=== PATIENT | male | born 1970 | race African-American/Black ===

== ENCOUNTER 2017-10-28 14:59 | Emergency (ER) | payer MEDICAID ==
[~2017-10-28] VITALS: Ht 175.3 cm; Wt 77.0 kg
[~2017-10-28 14:59] MED LIST: AMLO10TA4 PO; ASPI81TA50 PO; CARV-39 PO; CARV25TA12 PO; CLON0.2T PO; DOXA4TAB3 PO; HYDR-3342 PO; LISI-170 PO; LISI-467 PO; LISI2.5T PO
[2017-10-28 16:24] LABS: BASOPHILS # (AUTO) 0.02 x10^3/uL (0-0.1); BASOPHILS % (AUTO) 0 % (0-1); EOSINOPHILS # (AUTO) 0.18 x10^3/uL (0-0.4); EOSINOPHILS % (AUTO) 3 % (1-7); LYMPHOCYTES # (AUTO) 1.31 x10^3/uL (1-3.4); LYMPHOCYTES % (AUTO) 22 % (22-44); MD NO; MEAN CORPUSCULAR HEMOGLOBIN 30.6 pg (27.5-34.5); MEAN CORPUSCULAR HGB CONC 33.7 g/dL (33.2-36.2); MEAN CORPUSCULAR VOLUME 90.8 fL (81-97); MEAN PLATELET VOLUME 7.8 fL (7.4-10.4); MONOCYTES # (AUTO) 0.44 x10^3/uL (0.2-0.8); MONOCYTES % (AUTO) 7 % (2-9); NEUTROPHILS # (AUTO) 4.16 x10^3/uL (1.8-6.8); NEUTROPHILS % (AUTO) 68 % (42-75); PLATELET COUNT 169 x10^3/uL (130-400); RED BLOOD COUNT 4.43 x10^6/uL (4.38-5.82); RED CELL DISTRIBUTION WIDTH 15.3 % (9.4-14.8)
[2017-10-28 16:33] LABS: ALANINE AMINOTRANSFERASE 17 U/L (12-78); ALBUMIN 3.9 g/dL (3.4-5.0); ANION GAP 6 mmol/L (5-15); CALCIUM 8.4 mg/dL (8.5-10.1); CHLORIDE 110 mmol/L (98-107)
[2017-10-28 16:35] LABS: ALKALINE PHOSPHATASE 68 U/L (45-117); BILIRUBIN,TOTAL 0.7 mg/dL (0.2-1.0); TOTAL PROTEIN 7.4 g/dL (6.4-8.2)
[2017-10-28 17:00] LABS: MICROSCOPIC AUTO
[2017-10-28] MEDS ORDERED: ENALAPRILAT 1.25 MG/ML, 2ML IV ONE (17:00)
[2017-10-28 17:01] LABS: CULTURE INDICATED? NO
[2017-10-28] MEDS ORDERED: ENALAPRILAT 1.25 MG/ML, 2ML ONE (17:06)
[2017-10-28 17:09] LABS: TROPONIN I < 0.015 ng/mL (0.000-0.045)
[2017-10-28 17:24] VITALS: BP 175/124
== END 2017-10-28 19:41 | disposition home or self-care (01) ==
LOC: ED 18:24
DX: G44.89 Other headache syndrome (principal); I12.0 Hypertensive chronic kidney disease with stage 5 chronic kidney disease or end stage renal disease; N18.6 End stage renal disease; Z99.2 Dependence on renal dialysis; Z76.0 Encounter for issue of repeat prescription
CPT/HCPCS: 36415; 71010; 80053; 81001; 84484; 85025; 93005; 96374

== ENCOUNTER 2017-11-06 10:21 | Inpatient (IN) | payer MEDICAID ==
[~2017-11-06] VITALS: Ht 175.3 cm; Wt 73.0 kg
[2017-11-06] MEDS ORDERED: hydrALAzine 20 MG/ML, 1ML ONE ×2 (10:56→11:02)
[2017-11-06] MEDS ORDERED: SODIUM CHLORIDE FLUSH 10ML SYR IVF ONE (11:00)
[2017-11-06] MEDS ORDERED: FUROSEMIDE 40 MG/4 ML IVPush ONE (11:00)
[2017-11-06] MEDS ORDERED: SODIUM POLY SULFONATE UDC 15 GM/60 ML PO ONE (11:00)
[2017-11-06] MEDS ORDERED: DEXTROSE 50%, 50ML SYRINGE IVPush ONE (11:00)
[2017-11-06] MEDS ORDERED: CALCIUM CHLORIDE 10%, 10ML SYR IVPush ONE (11:00)
[2017-11-06] MEDS ORDERED: ALBUTEROL 0.5%, 20ML NPPB ONE (11:00)
[2017-11-06] MEDS ORDERED: hydrALAzine 20 MG/ML, 1ML IV ONE (11:00)
[2017-11-06] MEDS ORDERED: SODIUM BICARB 8.4%, 50ML SYRINGE IVPush ONE (11:00)
[2017-11-06] MEDS ORDERED: INSULIN REGULAR 100 UNITS/ML, 3ML VIAL IVPush ONE (11:00)
[2017-11-06] MEDS ORDERED: FUROSEMIDE 40 MG/4 ML ONE (11:02)
[2017-11-06] MEDS ORDERED: SODIUM POLYSTYRENE SULFONATE ORAL SUSP ONE (11:02)
[2017-11-06] MEDS ORDERED: SODIUM BICARB 8.4%, 50ML SYRINGE ONE (11:02)
[2017-11-06] MEDS ORDERED: CALCIUM CHLORIDE 10%, 10ML SYR ONE (11:02)
[2017-11-06] MEDS ORDERED: DEXTROSE 50%, 50ML SYRINGE ONE (11:02)
[2017-11-06] MEDS ORDERED: INSULIN REGULAR 100 UNITS/ML, 3ML VIAL ONE (11:03)
[2017-11-06 11:04] LABS: BASOPHILS # (AUTO) 0.02 x10^3/uL (0-0.1); BASOPHILS % (AUTO) 0 % (0-1); EOSINOPHILS # (AUTO) 0.27 x10^3/uL (0-0.4); EOSINOPHILS % (AUTO) 4 % (1-7); LYMPHOCYTES % (AUTO) 18 % (22-44); MD NO; MEAN CORPUSCULAR HGB CONC 33.9 g/dL (33.2-36.2); MEAN CORPUSCULAR VOLUME 91.7 fL (81-97); MEAN PLATELET VOLUME 7.9 fL (7.4-10.4); MONOCYTES # (AUTO) 0.25 x10^3/uL (0.2-0.8); MONOCYTES % (AUTO) 4 % (2-9); NEUTROPHILS # (AUTO) 4.38 x10^3/uL (1.8-6.8); NEUTROPHILS % (AUTO) 73 % (42-75); PLATELET COUNT 208 x10^3/uL (130-400); RED BLOOD COUNT 4.96 x10^6/uL (4.38-5.82); RED CELL DISTRIBUTION WIDTH 15.4 % (9.4-14.8)
[2017-11-06 11:17] LABS: ANION GAP 8 mmol/L (5-15); CALCIUM 8.7 mg/dL (8.5-10.1); CHLORIDE 113 mmol/L (98-107)
[2017-11-06 11:22] LABS: TROPONIN I < 0.015 ng/mL (0.000-0.045)
[2017-11-06] MEDS ORDERED: ONDANSETRON 2MG/ML, 2ML ONE (11:25)
[2017-11-06] MEDS ORDERED: POLYETHYLENE GLYCOL 17 GM PACKET PO PRN (13:00)
[2017-11-06] MEDS ORDERED: BISACODYL 10 MG SUPP PR PRN (13:00)
[2017-11-06] MEDS ORDERED: ACETAMINOPHEN 325 MG TABLET PO PRN (13:00)
[2017-11-06] MEDS ORDERED: DOCUSATE 100 MG CAPSULE PO PRN (13:00)
[2017-11-06] MEDS: HEPARIN 5,000 UNITS/ML, 1ML SQ SCH ×2 (13:00→20:03)
[2017-11-06] MEDS ORDERED: hydrALAzine 20 MG/ML, 1ML IVPush PRN (13:00)
[2017-11-06] MEDS ORDERED: ONDANSETRON 2MG/ML, 2ML IVPush PRN (13:00)
[2017-11-06 17:11] VITALS: BP 172/111
[2017-11-06] MEDS: FUROSEMIDE 20 MG TABLET PO SCH (18:00)
[2017-11-06 19:22] VITALS: BP 170/105
[2017-11-06] MEDS: SODIUM CHLORIDE FLUSH 10ML SYR IVF SCH (20:10)
[2017-11-06] MEDS: CARVEDILOL 25 MG TABLET PO SCH (20:10)
[2017-11-06] MEDS ORDERED: LISINOPRIL 20 MG TABLET PO SCH (21:00)
[2017-11-06 23:19] VITALS: BP 139/95
[2017-11-07 01:39] VITALS: BP 149/67
[2017-11-07 04:59] LABS: BASOPHILS # (AUTO) 0.03 x10^3/uL (0-0.1); BASOPHILS % (AUTO) 1 % (0-1); EOSINOPHILS # (AUTO) 0.25 x10^3/uL (0-0.4); EOSINOPHILS % (AUTO) 4 % (1-7); LYMPHOCYTES # (AUTO) 1.43 x10^3/uL (1-3.4); LYMPHOCYTES % (AUTO) 22 % (22-44); MD NO; MEAN CORPUSCULAR HEMOGLOBIN 30.9 pg (27.5-34.5); MEAN CORPUSCULAR HGB CONC 33.7 g/dL (33.2-36.2); MEAN CORPUSCULAR VOLUME 91.7 fL (81-97); MONOCYTES # (AUTO) 0.46 x10^3/uL (0.2-0.8); MONOCYTES % (AUTO) 7 % (2-9); NEUTROPHILS # (AUTO) 4.47 x10^3/uL (1.8-6.8); NEUTROPHILS % (AUTO) 67 % (42-75); PLATELET COUNT 182 x10^3/uL (130-400); RED BLOOD COUNT 4.88 x10^6/uL (4.38-5.82); RED CELL DISTRIBUTION WIDTH 15.5 % (9.4-14.8)
[2017-11-07] MEDS: HEPARIN 5,000 UNITS/ML, 1ML SQ SCH ×2 (05:00→13:00)
[2017-11-07 05:09] LABS: ALBUMIN 3.6 g/dL (3.4-5.0); CALCIUM 8.1 mg/dL (8.5-10.1); CHLORIDE 102 mmol/L (98-107)
[2017-11-07 05:13] LABS: ALANINE AMINOTRANSFERASE 26 U/L (12-78); ALKALINE PHOSPHATASE 74 U/L (45-117); ANION GAP 8 mmol/L (5-15); BILIRUBIN,TOTAL 0.5 mg/dL (0.2-1.0); CREATININE 5.36 mg/dL (0.7-1.3); TOTAL PROTEIN 6.9 g/dL (6.4-8.2)
[2017-11-07 07:26] VITALS: BP 159/113
[2017-11-07] MEDS: CARVEDILOL 25 MG TABLET PO SCH (08:10)
[2017-11-07] MEDS: FUROSEMIDE 20 MG TABLET PO SCH (08:10)
[2017-11-07] MEDS: SODIUM CHLORIDE FLUSH 10ML SYR IVF SCH (08:11)
[2017-11-07] MEDS ORDERED: AMLODIPINE 5 MG TABLET PO SCH ×2 (09:00→21:00)
[2017-11-07] MEDS ORDERED: LOSARTAN 50MG TABLET PO SCH (09:00)
[2017-11-07 10:06] VITALS: BP 143/94
[2017-11-07] MEDS ORDERED: LOSA50TA2 PO (10:39)
[2017-11-07] MEDS ORDERED: CARV25TA12 PO (10:43)
[2017-11-07 14:00] VITALS: BP 146/84
== END 2017-11-07 15:40 | disposition home or self-care (01) | DRG 291 ==
LOC: ED 11:27 → EDIP 12:04 → 4WST 14:05
PROVIDERS: ADMIT Internal Medicine; ATTEND Internal Medicine
PROC: 5A1D70Z Performance of Urinary Filtration, Intermittent, Less than 6 Hours Per Day (ICD-10-PCS; principal; 2017-11-06)
PROC: 5A1D70Z Performance of Urinary Filtration, Intermittent, Less than 6 Hours Per Day (ICD-10-PCS; 2017-11-07)
DX: I13.2 Hypertensive heart and chronic kidney disease with heart failure and with stage 5 chronic kidney disease, or end stage renal disease (principal); N18.6 End stage renal disease; E87.5 Hyperkalemia; I50.42 Chronic combined systolic (congestive) and diastolic (congestive) heart failure; I16.0 Hypertensive urgency; E78.5 Hyperlipidemia, unspecified; F17.210 Nicotine dependence, cigarettes, uncomplicated; F12.90 Cannabis use, unspecified, uncomplicated; Z79.899 Other long term (current) drug therapy; Z91.19 Patient's noncompliance with other medical treatment and regimen; Z99.2 Dependence on renal dialysis; Z91.14 Patient's other noncompliance with medication regimen
CPT/HCPCS: 36415; 71045; 80048; 80053; 80074; 82040; 83735; 83880; 84100; 84484; 84550; 85025; 93005; 96374; 96375; J1940; J0360

== ENCOUNTER 2018-08-06 20:48 | Inpatient (IN) | payer MEDICAID ==
[~2018-08-06] VITALS: Ht 172.7 cm; Wt 73.8 kg
[~2018-08-06 20:48] MED LIST changes: +LOSA50TA2 PO
[2018-08-06 21:19] LABS: BASOPHILS # (AUTO) 0.06 x10^3/uL (0-0.1); BASOPHILS % (AUTO) 1 % (0-1); EOSINOPHILS # (AUTO) 0.25 x10^3/uL (0-0.4); EOSINOPHILS % (AUTO) 3 % (1-7); LYMPHOCYTES # (AUTO) 1.28 x10^3/uL (1-3.4); LYMPHOCYTES % (AUTO) 17 % (22-44); MD NO; MEAN CORPUSCULAR HEMOGLOBIN 30.8 pg (27.5-34.5); MEAN CORPUSCULAR HGB CONC 33.6 g/dL (33.2-36.2); MEAN CORPUSCULAR VOLUME 91.6 fL (81-97); MEAN PLATELET VOLUME 7.6 fL (7.4-10.4); MONOCYTES # (AUTO) 0.33 x10^3/uL (0.2-0.8); MONOCYTES % (AUTO) 5 % (2-9); NEUTROPHILS # (AUTO) 5.47 x10^3/uL (1.8-6.8); NEUTROPHILS % (AUTO) 74 % (42-75); PLATELET COUNT 229 x10^3/uL (130-400); RED BLOOD COUNT 4.38 x10^6/uL (4.38-5.82); RED CELL DISTRIBUTION WIDTH 15.6 % (9.4-14.8)
[2018-08-06 21:31] LABS: ALBUMIN 4.1 g/dL (3.4-5.0); ANION GAP 6 mmol/L (5-15); CALCIUM 8.1 mg/dL (8.5-10.1); CHLORIDE 113 mmol/L (98-107); CREATININE 7.38 mg/dL (0.7-1.3)
[2018-08-06 21:35] LABS: TROPONIN I < 0.015 ng/mL (0.000-0.045)
[2018-08-06] MEDS ORDERED: INSULIN REGULAR 100 UNITS/ML, 3ML VIAL SQ-INSULIN SCH (22:00)
[2018-08-06] MEDS ORDERED: SODIUM POLYSTYRENE SULFONATE ORAL SUSP PO ONE (22:00)
[2018-08-06] MEDS ORDERED: DEXTROSE 50%, 50ML VIAL IVPush ONE (22:00)
[2018-08-06] MEDS ORDERED: CALCIUM GLUCONATE 9.2 MEQ in SODIUM CHLORIDE 0.9% 100 ML IV ONE (22:00)
[2018-08-06] MEDS ORDERED: LISI40TA PO (22:02)
[2018-08-06] MEDS ORDERED: DEXTROSE 50%, 50ML SYRINGE ONE (22:26)
[2018-08-06] MEDS ORDERED: SODIUM POLY SULFONATE UDC 15 GM/60 ML ONE (22:26)
[2018-08-06] MEDS ORDERED: INSULIN REGULAR 100 UNITS/ML, 3ML VIAL ONE (22:26)
[2018-08-06] MEDS ORDERED: DEXTROSE 50%, 50ML SYRINGE IVPush ONE (22:30)
[2018-08-06] MEDS ORDERED: POLYETHYLENE GLYCOL 17 GM PACKET PO PRN (23:00)
[2018-08-06] MEDS: CARVEDILOL 25 MG TABLET PO SCH (23:00)
[2018-08-06] MEDS: HEPARIN 5,000 UNITS/ML, 1ML SQ SCH (23:00)
[2018-08-06] MEDS ORDERED: ONDANSETRON ODT 4 MG PO PRN (23:00)
[2018-08-06] MEDS: NICOTINE 14MG/24 HR PATCH.TD24 TD SCH (23:00)
[2018-08-06] MEDS ORDERED: ACETAMINOPHEN 325 MG TABLET PO PRN (23:00)
[2018-08-06] MEDS ORDERED: BISACODYL 10 MG SUPP PR PRN (23:00)
[2018-08-06 23:12] VITALS: BP 144/94
[2018-08-06 23:36] LABS: BILIRUBIN, DIRECT 0.2 mg/dL (0.1-0.2)
[2018-08-06 23:38] LABS: BILIRUBIN,INDIRECT 0.4 mg/dL (0.0-2.0); BILIRUBIN,TOTAL 0.6 mg/dL (0.2-1.0); TOTAL PROTEIN 8.1 g/dL (6.4-8.2)
[2018-08-07 02:00] LABS: BASOPHILS # (AUTO) 0.04 x10^3/uL (0-0.1); BASOPHILS % (AUTO) 1 % (0-1); EOSINOPHILS # (AUTO) 0.19 x10^3/uL (0-0.4); EOSINOPHILS % (AUTO) 3 % (1-7); LYMPHOCYTES # (AUTO) 1.03 x10^3/uL (1-3.4); LYMPHOCYTES % (AUTO) 16 % (22-44); MD NO; MEAN CORPUSCULAR HEMOGLOBIN 30.5 pg (27.5-34.5); MEAN CORPUSCULAR HGB CONC 33.2 g/dL (33.2-36.2); MEAN CORPUSCULAR VOLUME 91.8 fL (81-97); MEAN PLATELET VOLUME 7.8 fL (7.4-10.4); MONOCYTES # (AUTO) 0.35 x10^3/uL (0.2-0.8); MONOCYTES % (AUTO) 6 % (2-9); NEUTROPHILS # (AUTO) 4.82 x10^3/uL (1.8-6.8); NEUTROPHILS % (AUTO) 75 % (42-75); PLATELET COUNT 163 x10^3/uL (130-400); RED BLOOD COUNT 4.04 x10^6/uL (4.38-5.82); RED CELL DISTRIBUTION WIDTH 15.2 % (9.4-14.8)
[2018-08-07 02:08] LABS: ALANINE AMINOTRANSFERASE 31 U/L (12-78); ALBUMIN 3.4 g/dL (3.4-5.0); ANION GAP 10 mmol/L (5-15); CALCIUM 7.9 mg/dL (8.5-10.1); CHLORIDE 106 mmol/L (98-107); CREATININE 4.04 mg/dL (0.7-1.3)
[2018-08-07 02:10] LABS: ALKALINE PHOSPHATASE 57 U/L (45-117); BILIRUBIN,TOTAL 0.6 mg/dL (0.2-1.0); TOTAL PROTEIN 6.8 g/dL (6.4-8.2)
[2018-08-07] MEDS: SODIUM CHLORIDE FLUSH 10ML SYR IVF SCH ×3 (03:10→20:47)
[2018-08-07 03:58] VITALS: BP 167/93
[2018-08-07 06:46] VITALS: BP 150/95
[2018-08-07] MEDS: NICOTINE 14MG/24 HR PATCH.TD24 TD SCH (08:00)
[2018-08-07] MEDS: HEPARIN 5,000 UNITS/ML, 1ML SQ SCH ×3 (08:00→23:21)
[2018-08-07] MEDS: SENNA/DOCUSATE TABLET PO SCH (09:00)
[2018-08-07] MEDS: AMLODIPINE 10 MG TAB PO SCH (10:35)
[2018-08-07] MEDS: CARVEDILOL 25 MG TABLET PO SCH ×2 (10:35→20:47)
[2018-08-07 12:04] VITALS: BP 136/91
[2018-08-07 19:22] VITALS: BP 159/76
[2018-08-08 02:00] VITALS: BP 152/89
[2018-08-08] MEDS: HEPARIN 5,000 UNITS/ML, 1ML SQ SCH ×2 (07:28→16:00)
[2018-08-08] MEDS: NICOTINE 14MG/24 HR PATCH.TD24 TD SCH (07:28)
[2018-08-08 07:29] VITALS: BP 151/90
[2018-08-08] MEDS: SENNA/DOCUSATE TABLET PO SCH (07:29)
[2018-08-08] MEDS: SODIUM CHLORIDE FLUSH 10ML SYR IVF SCH (09:00)
[2018-08-08 12:25] VITALS: BP 149/102
[2018-08-08] MEDS: CARVEDILOL 25 MG TABLET PO SCH (14:34)
[2018-08-08] MEDS: AMLODIPINE 10 MG TAB PO SCH (14:34)
== END 2018-08-08 17:10 | disposition home or self-care (01) | DRG 640 ==
LOC: ED 22:27 → EDIP 22:30 → 4WST 23:05
PROVIDERS: ADMIT Internal Medicine; ATTEND Internal Medicine
PROC: 5A1D70Z Performance of Urinary Filtration, Intermittent, Less than 6 Hours Per Day (ICD-10-PCS; 2018-08-06)
PROC: 5A1D70Z Performance of Urinary Filtration, Intermittent, Less than 6 Hours Per Day (ICD-10-PCS; principal; 2018-08-08)
DX: E87.5 Hyperkalemia (principal); N18.6 End stage renal disease; I50.32 Chronic diastolic (congestive) heart failure; I13.2 Hypertensive heart and chronic kidney disease with heart failure and with stage 5 chronic kidney disease, or end stage renal disease; Z99.2 Dependence on renal dialysis; D63.1 Anemia in chronic kidney disease; E78.5 Hyperlipidemia, unspecified; F12.90 Cannabis use, unspecified, uncomplicated; F17.210 Nicotine dependence, cigarettes, uncomplicated; N25.0 Renal osteodystrophy; Z79.4 Long term (current) use of insulin; Z91.15 Patient's noncompliance with renal dialysis; Z72.89 Other problems related to lifestyle; Z80.9 Family history of malignant neoplasm, unspecified
CPT/HCPCS: 36415; 71045; 80048; 80053; 80076; 82040; 83735; 83880; 84484; 85025; 93005; 96372; 96374; 96375; 99285; G0378; J0610

== ENCOUNTER 2018-10-29 18:32 | Inpatient (IN) | payer MEDICAID ==
[~2018-10-29] VITALS: Ht 175.3 cm; Wt 76.4 kg
[~2018-10-29 18:32] MED LIST changes: +LISI40TA PO
--- NOTE | 2018-10-29 19:02 | NUR ---
PT HERE BECAUSE HE HASNT HAD DIALYSIS FOR APPROX 1 WEEK. PT SAYS HE JUST DOESNT FEEL GOOD. VSS. PT APPEARS IN NAD AND DENIES PAIN OR N/V. PT TO BE EVALUATED BY ERP. CALL LIGHT IN REACH
[2018-10-29 19:49] LABS: BASOPHILS # (AUTO) 0.04 x10^3/uL (0-0.1); BASOPHILS % (AUTO) 1 % (0-1); EOSINOPHILS # (AUTO) 0.24 x10^3/uL (0-0.4); EOSINOPHILS % (AUTO) 4 % (1-7); LYMPHOCYTES # (AUTO) 1.29 x10^3/uL (1-3.4); LYMPHOCYTES % (AUTO) 22 % (22-44); MD NO; MEAN CORPUSCULAR HEMOGLOBIN 31.6 pg (27.5-34.5); MEAN CORPUSCULAR HGB CONC 33.7 g/dL (33.2-36.2); MEAN CORPUSCULAR VOLUME 93.9 fL (81-97); MEAN PLATELET VOLUME 8.1 fL (7.4-10.4); MONOCYTES # (AUTO) 0.45 x10^3/uL (0.2-0.8); MONOCYTES % (AUTO) 8 % (2-9); NEUTROPHILS # (AUTO) 3.91 x10^3/uL (1.8-6.8); NEUTROPHILS % (AUTO) 66 % (42-75); PLATELET COUNT 197 x10^3/uL (130-400)
[2018-10-29 20:01] LABS: ANION GAP 7 mmol/L (5-15); CALCIUM 8.5 mg/dL (8.5-10.1); CHLORIDE 113 mmol/L (98-107); CREATININE 9.77 mg/dL (0.7-1.3)
[2018-10-29] MEDS ORDERED: DEXTROSE 50%, 50ML SYRINGE ONE (20:21)
[2018-10-29] MEDS ORDERED: SODIUM BICARB 8.4%, 50ML SYRINGE ONE (20:21)
[2018-10-29] MEDS ORDERED: INSULIN REGULAR 100 UNITS/ML, 3ML VIAL IVPush ONE (20:30)
[2018-10-29] MEDS ORDERED: DEXTROSE 50%, 50ML SYRINGE IVPush ONE (20:30)
[2018-10-29] MEDS ORDERED: SODIUM BICARB 8.4%, 50ML SYRINGE IVPush ONE (20:30)
--- NOTE | 2018-10-29 20:33 | NUR ---
PT HAS K+ 6.7. PIV STARTED. PT MEDICATED WITH BICARB AND DEXTROSE. INSULIN HELD PER MD ORDER UNTIL GLUCOSE CAN BE RECHECKED. VSS. CALL LIGHT IN REACH.
--- NOTE | 2018-10-29 20:42 | NUR ---
FSBG 169. AWARE.
--- NOTE | 2018-10-29 20:54 | NUR ---
PT TO GO FOR STAT DIALYSIS. WAITING FOR BED ASSIGNMENT TO GIVE REPORT
[2018-10-29] MEDS ORDERED: SODIUM CHLORIDE FLUSH 10ML SYR IVF PRN (21:00)
[2018-10-29] MEDS ORDERED: ONDANSETRON ODT 4 MG PO PRN (21:30)
[2018-10-29] MEDS ORDERED: NICOTINE 14MG/24 HR PATCH.TD24 TD SCH (21:30)
[2018-10-29] MEDS: SODIUM CHLORIDE FLUSH 10ML SYR IVF SCH (21:30)
[2018-10-29] MEDS ORDERED: POLYETHYLENE GLYCOL 17 GM PACKET PO PRN (21:30)
[2018-10-29] MEDS: HEPARIN 5,000 UNITS/ML, 1ML SQ SCH (21:30)
[2018-10-29] MEDS ORDERED: BISACODYL 10 MG SUPP PR PRN (21:30)
[2018-10-29] MEDS ORDERED: ACETAMINOPHEN 325 MG TABLET PO PRN (21:30)
[2018-10-29 21:35] VITALS: BP 142/88
[2018-10-29] MEDS: CARVEDILOL 25 MG TABLET PO SCH (21:59)
[2018-10-30 01:59] VITALS: BP 134/86
[2018-10-30] MEDS: HEPARIN 5,000 UNITS/ML, 1ML SQ SCH ×2 (04:25→13:30)
[2018-10-30 06:16] LABS: BASOPHILS # (AUTO) 0.04 x10^3/uL (0-0.1); BASOPHILS % (AUTO) 1 % (0-1); EOSINOPHILS # (AUTO) 0.25 x10^3/uL (0-0.4); EOSINOPHILS % (AUTO) 5 % (1-7); LYMPHOCYTES # (AUTO) 1.47 x10^3/uL (1-3.4); LYMPHOCYTES % (AUTO) 29 % (22-44); MD NO; MEAN CORPUSCULAR HEMOGLOBIN 31.6 pg (27.5-34.5); MEAN CORPUSCULAR HGB CONC 34.4 g/dL (33.2-36.2); MEAN CORPUSCULAR VOLUME 91.8 fL (81-97); MONOCYTES # (AUTO) 0.48 x10^3/uL (0.2-0.8); MONOCYTES % (AUTO) 9 % (2-9); NEUTROPHILS # (AUTO) 2.92 x10^3/uL (1.8-6.8); NEUTROPHILS % (AUTO) 57 % (42-75); PLATELET COUNT 170 x10^3/uL (130-400); RED BLOOD COUNT 4.36 x10^6/uL (4.38-5.82); RED CELL DISTRIBUTION WIDTH 15.9 % (9.4-14.8)
[2018-10-30 06:22] LABS: ALBUMIN 3.8 g/dL (3.4-5.0); ANION GAP 8 mmol/L (5-15); CALCIUM 8.1 mg/dL (8.5-10.1); CHLORIDE 106 mmol/L (98-107)
[2018-10-30 06:26] LABS: ALANINE AMINOTRANSFERASE 24 U/L (12-78); ALKALINE PHOSPHATASE 93 U/L (45-117); BILIRUBIN,TOTAL 0.4 mg/dL (0.2-1.0); CREATININE 6.11 mg/dL (0.7-1.3); TOTAL PROTEIN 7.5 g/dL (6.4-8.2)
[2018-10-30 06:40] VITALS: BP 146/84
[2018-10-30] MEDS: CARVEDILOL 25 MG TABLET PO SCH (08:28)
[2018-10-30] MEDS ORDERED: AMLODIPINE 10 MG TAB PO SCH (09:00)
[2018-10-30] MEDS: SODIUM CHLORIDE FLUSH 10ML SYR IVF SCH (09:00)
[2018-10-30] MEDS ORDERED: LISINOPRIL 20 MG TABLET PO SCH (09:00)
[2018-10-30] MEDS ORDERED: SENNA/DOCUSATE TABLET PO SCH (09:00)
[2018-10-30 14:00] VITALS: BP 128/72
== END 2018-10-30 23:04 | disposition home or self-care (01) | DRG 640 ==
LOC: ED 20:41 → EDIP 20:43 → 4EST 21:15
PROVIDERS: ADMIT Internal Medicine; ATTEND Internal Medicine
PROC: 5A1D70Z Performance of Urinary Filtration, Intermittent, Less than 6 Hours Per Day (ICD-10-PCS; principal; 2018-10-29)
PROC: 5A1D70Z Performance of Urinary Filtration, Intermittent, Less than 6 Hours Per Day (ICD-10-PCS; 2018-10-30)
DX: E87.5 Hyperkalemia (principal); N18.6 End stage renal disease; I13.2 Hypertensive heart and chronic kidney disease with heart failure and with stage 5 chronic kidney disease, or end stage renal disease; I50.32 Chronic diastolic (congestive) heart failure; E11.65 Type 2 diabetes mellitus with hyperglycemia; E11.22 Type 2 diabetes mellitus with diabetic chronic kidney disease; D63.1 Anemia in chronic kidney disease; F12.10 Cannabis abuse, uncomplicated; F17.210 Nicotine dependence, cigarettes, uncomplicated; N25.0 Renal osteodystrophy; Z91.15 Patient's noncompliance with renal dialysis; Z91.19 Patient's noncompliance with other medical treatment and regimen; Z99.2 Dependence on renal dialysis
CPT/HCPCS: 36415; 80048; 80053; 82040; 85025; 93005; 96374; 96375; 99291; G0378

== ENCOUNTER 2018-11-19 18:06 | Inpatient (IN) | payer MEDICAID ==
[~2018-11-19] VITALS: Ht 175.3 cm; Wt 75.9 kg
--- NOTE | 2018-11-19 18:56 | NUR ---
Pt presents for mild SOB and mild generalized weakness. Pt states he is a dialysis pt MF. Makes urine. Out in [place] visiting family and he dialysis he organized fell through. No dialysis in 1 week. Appears NAD. Peaked t waves on ECG.
[2018-11-19 18:58] LABS: BASOPHILS # (AUTO) 0.04 x10^3/uL (0-0.1); BASOPHILS % (AUTO) 1 % (0-1); EOSINOPHILS # (AUTO) 0.26 x10^3/uL (0-0.4); EOSINOPHILS % (AUTO) 5 % (1-7); LYMPHOCYTES # (AUTO) 1.24 x10^3/uL (1-3.4); LYMPHOCYTES % (AUTO) 25 % (22-44); MD NO; MEAN CORPUSCULAR HEMOGLOBIN 31.6 pg (27.5-34.5); MEAN CORPUSCULAR HGB CONC 33.9 g/dL (33.2-36.2); MEAN CORPUSCULAR VOLUME 93.1 fL (81-97); MONOCYTES # (AUTO) 0.36 x10^3/uL (0.2-0.8); MONOCYTES % (AUTO) 7 % (2-9); NEUTROPHILS # (AUTO) 3.15 x10^3/uL (1.8-6.8); NEUTROPHILS % (AUTO) 62 % (42-75); PLATELET COUNT 181 x10^3/uL (130-400); RED BLOOD COUNT 4.16 x10^6/uL (4.38-5.82); RED CELL DISTRIBUTION WIDTH 15.1 % (9.4-14.8)
[2018-11-19] MEDS ORDERED: SODIUM CHLORIDE FLUSH 10ML SYR IVF ONE (19:00)
[2018-11-19 19:07] LABS: ALBUMIN 3.9 g/dL (3.4-5.0); ANION GAP 6 mmol/L (5-15); CALCIUM 8.4 mg/dL (8.5-10.1); CHLORIDE 115 mmol/L (98-107); CREATININE 9.08 mg/dL (0.7-1.3)
[2018-11-19] MEDS ORDERED: SODIUM POLY SULFONATE UDC 15 GM/60 ML PO ONE (20:00)
[2018-11-19] MEDS ORDERED: CALCIUM CHLORIDE 10%, 10ML SYR IVPush ONE (20:00)
[2018-11-19] MEDS ORDERED: DEXTROSE 50%, 50ML SYRINGE IVPush ONE ×2 (20:00→21:30)
[2018-11-19] MEDS ORDERED: INSULIN REGULAR 100 UNITS/ML, 3ML VIAL IVPush ONE (20:00)
[2018-11-19] MEDS ORDERED: INSULIN REGULAR 100 UNITS/ML, 3ML VIAL ONE (20:15)
[2018-11-19] MEDS ORDERED: CALCIUM CHLORIDE 10%, 10ML SYR ONE (20:17)
[2018-11-19] MEDS ORDERED: DEXTROSE 50%, 50ML SYRINGE ONE ×2 (20:17→21:28)
--- NOTE | 2018-11-19 20:19 | NUR ---
IV insulin checked with Riana PIKE Addendum: 11/20/18 at 1918 by NGUYEN IV insulin checked with Yesica PIKE
--- NOTE | 2018-11-19 20:36 | NUR ---
Pt in bed, NAD at this time.
[2018-11-19] MEDS ORDERED: hydrALAzine 20 MG/ML, 1ML IVPush PRN (21:00)
[2018-11-19] MEDS ORDERED: NICOTINE 7 MG/24 HR PATCH.TD24 TD SCH (21:00)
[2018-11-19] MEDS ORDERED: DOCUSATE 100 MG CAPSULE PO PRN (21:00)
[2018-11-19] MEDS ORDERED: ONDANSETRON ODT 4 MG PO PRN (21:00)
[2018-11-19] MEDS: HEPARIN 5,000 UNITS/ML, 1ML SQ SCH (21:00)
[2018-11-19] MEDS ORDERED: ACETAMINOPHEN 325 MG TABLET PO PRN (21:00)
--- NOTE | 2018-11-19 21:32 | NUR ---
Pt found in room, diaphoretic. AAOx4. BG checked at 17. D50 50ml given. Two 8oz OJ given. Pt denies CP. VSS.
--- NOTE | 2018-11-19 21:54 | NUR ---
On recheck, BG 54. Pt NAD at this time. Pt given 8oz more OJ, cereal and milk.
--- NOTE | 2018-11-19 23:01 | NUR ---
BG 69 at this time. Pt NAD.
[2018-11-19 23:17] VITALS: BP 143/93
[2018-11-20] MEDS ORDERED: SODIUM POLYSTYRENE SULFONATE ORAL SUSP PO ONE
[2018-11-20] MEDS: DEXTROSE 5% 1,000 ML IV SCH ×2 (00:03→07:52)
[2018-11-20] MEDS: CARVEDILOL 25 MG TABLET PO SCH ×2 (00:04→07:49)
[2018-11-20 01:50] VITALS: BP 149/92
[2018-11-20] MEDS: HEPARIN 5,000 UNITS/ML, 1ML SQ SCH ×2 (05:00→12:06)
[2018-11-20 05:49] LABS: BASOPHILS # (AUTO) 0.04 x10^3/uL (0-0.1); BASOPHILS % (AUTO) 1 % (0-1); EOSINOPHILS # (AUTO) 0.18 x10^3/uL (0-0.4); EOSINOPHILS % (AUTO) 4 % (1-7); LYMPHOCYTES # (AUTO) 1.13 x10^3/uL (1-3.4); LYMPHOCYTES % (AUTO) 23 % (22-44); MD NO; MEAN CORPUSCULAR HEMOGLOBIN 31.7 pg (27.5-34.5); MEAN CORPUSCULAR HGB CONC 34.1 g/dL (33.2-36.2); MEAN CORPUSCULAR VOLUME 92.8 fL (81-97); MEAN PLATELET VOLUME 8.3 fL (7.4-10.4); MONOCYTES # (AUTO) 0.39 x10^3/uL (0.2-0.8); MONOCYTES % (AUTO) 8 % (2-9); NEUTROPHILS # (AUTO) 3.14 x10^3/uL (1.8-6.8); NEUTROPHILS % (AUTO) 64 % (42-75); PLATELET COUNT 174 x10^3/uL (130-400); RED BLOOD COUNT 4.01 x10^6/uL (4.38-5.82); RED CELL DISTRIBUTION WIDTH 14.6 % (9.4-14.8)
[2018-11-20 05:57] LABS: ANION GAP 8 mmol/L (5-15); CALCIUM 8.6 mg/dL (8.5-10.1); CHLORIDE 110 mmol/L (98-107); CREATININE 8.48 mg/dL (0.7-1.3)
[2018-11-20 07:02] VITALS: BP 138/86
[2018-11-20] MEDS ORDERED: AMLODIPINE 10 MG TAB PO SCH (09:00)
[2018-11-20] MEDS ORDERED: LISINOPRIL 20 MG TABLET PO SCH (09:00)
[2018-11-20 14:00] VITALS: BP 128/76
== END 2018-11-20 18:07 | disposition home or self-care (01) | DRG 640 ==
LOC: ED 18:32 → EDIP 20:27 → 4EST 23:07
PROVIDERS: ADMIT Internal Medicine; ATTEND Internal Medicine
PROC: 5A1D70Z Performance of Urinary Filtration, Intermittent, Less than 6 Hours Per Day (ICD-10-PCS; principal; 2018-11-20)
DX: E87.5 Hyperkalemia (principal); N18.6 End stage renal disease; I13.2 Hypertensive heart and chronic kidney disease with heart failure and with stage 5 chronic kidney disease, or end stage renal disease; I50.32 Chronic diastolic (congestive) heart failure; Z99.2 Dependence on renal dialysis; D63.8 Anemia in other chronic diseases classified elsewhere; E11.22 Type 2 diabetes mellitus with diabetic chronic kidney disease; E11.649 Type 2 diabetes mellitus with hypoglycemia without coma; F12.90 Cannabis use, unspecified, uncomplicated; Z72.0 Tobacco use; Z80.0 Family history of malignant neoplasm of digestive organs; Z91.19 Patient's noncompliance with other medical treatment and regimen; R06.89 Other abnormalities of breathing
CPT/HCPCS: 36415; 71045; 80048; 82040; 82962; 83735; 85025; 93005; 96374; 96375; G0378; J7070

== ENCOUNTER 2018-12-20 18:01 | Observation (INO) | payer MEDICAID ==
[~2018-12-20] VITALS: Ht 175.3 cm; Wt 83.5 kg
--- NOTE | 2018-12-20 18:52 | NUR ---
+SOB. DENIES CP/BLE EDEMA/PRODUCTIVE COUGH. SPO2 >90% ON RA; SPEAKING IN FULL SENTENCES WO DIFFICULTY VISITING JUAN RAMON FROM [place], NO DIALYSIS X ONE WEEK PER TRIAGE NOTE
--- NOTE | 2018-12-20 19:09 | NUR ---
SBAR HAND-OFF REPORT TO SHAHZAD DONOVAN.
[2018-12-20 19:21] LABS: BASOPHILS # (AUTO) 0.04 x10^3/uL (0-0.1); BASOPHILS % (AUTO) 1 % (0-1); EOSINOPHILS % (AUTO) 6 % (1-7); LYMPHOCYTES # (AUTO) 1.31 x10^3/uL (1-3.4); LYMPHOCYTES % (AUTO) 26 % (22-44); MD NO; MEAN CORPUSCULAR HEMOGLOBIN 31.6 pg (27.5-34.5); MEAN CORPUSCULAR VOLUME 93.1 fL (81-97); MEAN PLATELET VOLUME 7.7 fL (7.4-10.4); MONOCYTES # (AUTO) 0.36 x10^3/uL (0.2-0.8); MONOCYTES % (AUTO) 7 % (2-9); NEUTROPHILS # (AUTO) 3.11 x10^3/uL (1.8-6.8); NEUTROPHILS % (AUTO) 61 % (42-75); PLATELET COUNT 196 x10^3/uL (130-400); RED BLOOD COUNT 4.24 x10^6/uL (4.38-5.82); RED CELL DISTRIBUTION WIDTH 14.6 % (9.4-14.8)
[2018-12-20 19:25] LABS: ALANINE AMINOTRANSFERASE 26 U/L (12-78); ALBUMIN 3.9 g/dL (3.4-5.0); ANION GAP 4 mmol/L (5-15); CALCIUM 8.4 mg/dL (8.5-10.1); CHLORIDE 116 mmol/L (98-107); CREATININE 8.84 mg/dL (0.7-1.3)
[2018-12-20 19:27] LABS: ALKALINE PHOSPHATASE 82 U/L (45-117); BILIRUBIN,TOTAL 0.4 mg/dL (0.2-1.0); TOTAL PROTEIN 7.8 g/dL (6.4-8.2)
--- NOTE | 2018-12-20 19:53 | NUR ---
GIVEN URINE CUP FOR UA PT UPA MBULATED TO BATHROOM UA IN LAB
[2018-12-20] MEDS ORDERED: CALCIUM CHLORIDE 10%, 10ML SYR IVPush ONE (20:00)
[2018-12-20] MEDS ORDERED: DEXTROSE 50%, 50ML SYRINGE IVPush ONE (20:00)
[2018-12-20] MEDS ORDERED: INSULIN REGULAR 100 UNITS/ML, 3ML VIAL IVPush ONE (20:00)
[2018-12-20] MEDS ORDERED: CALCIUM CHLORIDE 10%, 10ML SYR ONE (20:03)
[2018-12-20] MEDS ORDERED: DEXTROSE 50%, 50ML SYRINGE ONE ×2 (20:03→21:14)
[2018-12-20] MEDS ORDERED: INSULIN REGULAR 100 UNITS/ML, 3ML VIAL ONE (20:04)
--- NOTE | 2018-12-20 20:09 | NUR ---
GIVEN MED ( CALCIUM ) DEXTROSE 50MLS AND R INSULIN 10 UNITS IV PUSH PT WORRIED ABOUT BLOOD SUGAR MIGHT DROP
[2018-12-20 20:23] LABS: MICROSCOPIC NOT IND
[2018-12-20] MEDS ORDERED: SODIUM POLYSTYRENE SULFONATE ORAL SUSP PO ONE (20:30)
[2018-12-20 20:35] LABS: CULTURE INDICATED? NO
--- NOTE | 2018-12-20 21:27 | NUR ---
PT'S FSBS WSAS 26 PT WAS SWEATING GIVEN D50 AMP AGAIN PT REFUSED TO TAKE KAYEXALATE AT THIS TIME WAS NOTIFIED
[2018-12-20] MEDS ORDERED: DEXTROSE 50%, 50ML VIAL IVPush ONE (21:30)
--- NOTE | 2018-12-20 21:36 | NUR ---
GIVEN REPORT TO BERTA Z[employer] TELE
--- NOTE | 2018-12-20 21:48 | NUR ---
RECHECKED FSBS 77 AGAIN BUT REPORT WAS GIVEN ALREADY TO BERTA PIKE MD WAS NOTIFIED WILL GIVE TURKEY SANDWICH RIGHT AWAY GIVEN SANDWICH BUT PT IS TRANSFERRING NOW NOTIFIED TO SHAHZAD HAMPTON BY THE PHONE REGARDIG CURRENT PT'S BLOOD SUGAR SITUATION SUP ERIC WAS NOTIFIED ERIC TEXTED TO MATTHIAS FOR FSBS ISSUES
[2018-12-20 21:56] VITALS: BP 145/92
[2018-12-20] MEDS ORDERED: AMLO10TA8 PO (22:01)
[2018-12-20] MEDS ORDERED: hydrALAzine 20 MG/ML, 1ML IVPush PRN (23:00)
[2018-12-20] MEDS ORDERED: BISACODYL 10 MG SUPP PR PRN (23:00)
[2018-12-20] MEDS ORDERED: LABETALOL 5MG/ML, 20ML IVPush PRN (23:00)
[2018-12-20] MEDS ORDERED: PROMETHAZINE 25 MG/ML, 1ML IM PRN (23:00)
[2018-12-20] MEDS ORDERED: DOCUSATE 100 MG CAPSULE PO PRN (23:00)
[2018-12-20] MEDS ORDERED: GABAPENTIN 300 MG CAPSULE PO PRN (23:00)
[2018-12-20] MEDS ORDERED: ONDANSETRON ODT 4 MG PO PRN (23:00)
[2018-12-20] MEDS ORDERED: NICOTINE 7 MG/24 HR PATCH.TD24 TD SCH (23:00)
[2018-12-20] MEDS ORDERED: POLYETHYLENE GLYCOL 17 GM PACKET PO PRN (23:00)
[2018-12-20] MEDS ORDERED: ACETAMINOPHEN 325 MG TABLET PO PRN (23:00)
[2018-12-20] MEDS ORDERED: ONDANSETRON 2MG/ML, 2ML IVPush PRN (23:00)
[2018-12-20] MEDS: HEPARIN 5,000 UNITS/ML, 1ML SQ SCH (23:00)
[2018-12-20 23:20] VITALS: BP 132/85
[2018-12-20] MEDS: CARVEDILOL 25 MG TABLET PO SCH (23:22)
[2018-12-20 23:24] LABS: FREE T4 (FREE THYROXINE) 0.9 ng/dL (0.76-1.46); THYROID STIMULATING HORMONE 0.389 mIU/L (0.358-3.740)
[2018-12-21 00:07] LABS: HEMOGLOBIN A1C 4.8 % (4.2-6.3)
[2018-12-21 00:23] VITALS: BP 136/91
[2018-12-21 05:58] LABS: BASOPHILS # (AUTO) 0.03 x10^3/uL (0-0.1); BASOPHILS % (AUTO) 1 % (0-1); EOSINOPHILS # (AUTO) 0.25 x10^3/uL (0-0.4); EOSINOPHILS % (AUTO) 6 % (1-7); LYMPHOCYTES # (AUTO) 1.04 x10^3/uL (1-3.4); LYMPHOCYTES % (AUTO) 24 % (22-44); MD NO; MEAN CORPUSCULAR HEMOGLOBIN 30.9 pg (27.5-34.5); MEAN CORPUSCULAR HGB CONC 33.4 g/dL (33.2-36.2); MEAN CORPUSCULAR VOLUME 92.5 fL (81-97); MEAN PLATELET VOLUME 7.9 fL (7.4-10.4); MONOCYTES % (AUTO) 7 % (2-9); NEUTROPHILS # (AUTO) 2.67 x10^3/uL (1.8-6.8); NEUTROPHILS % (AUTO) 62 % (42-75); PLATELET COUNT 190 x10^3/uL (130-400); RED CELL DISTRIBUTION WIDTH 14.5 % (9.4-14.8)
[2018-12-21 06:18] LABS: ALANINE AMINOTRANSFERASE 29 U/L (12-78); ANION GAP 3 mmol/L (5-15); CALCIUM 8.2 mg/dL (8.5-10.1); CHLORIDE 118 mmol/L (98-107)
[2018-12-21 06:50] LABS: ALBUMIN 3.7 g/dL (3.4-5.0); ALKALINE PHOSPHATASE 77 U/L (45-117); BILIRUBIN,TOTAL 0.4 mg/dL (0.2-1.0); CHOLESTEROL, TOTAL 145 mg/dL (140-239); HDL CHOL % 34 % (26-37); HDL CHOLESTEROL (DIRECT) 49 mg/dL (40-60); LDL CHOLESTEROL,CALCULATED 67 mg/dL (54-169); LDL/HDL RATIO 1.4 (0.5-3.0); TOTAL PROTEIN 7.2 g/dL (6.4-8.2); TRIGLYCERIDES 143 mg/dL (50-200); VLDL CHOLESTEROL 29 mg/dL (0-25)
[2018-12-21] MEDS ORDERED: CALCIUM GLUCONATE 4.6 MEQ in SODIUM CHLORIDE 0.9% 50 ML IV STA (07:22)
[2018-12-21 07:35] VITALS: BP 149/98
[2018-12-21] MEDS: HEPARIN 5,000 UNITS/ML, 1ML SQ SCH (08:00)
[2018-12-21] MEDS ORDERED: AMLODIPINE 10 MG TAB PO SCH (09:00)
[2018-12-21] MEDS ORDERED: LISINOPRIL 20 MG TABLET PO SCH (09:00)
[2018-12-21 14:02] VITALS: BP 164/101
[2018-12-21] MEDS: CARVEDILOL 25 MG TABLET PO SCH (15:16)
== END 2018-12-21 15:28 | disposition home or self-care (01) ==
LOC: ED 20:56 → EDIP 21:11 → INTOOBSV 21:11 → 4WST 21:46 → DCLOUNGE 12-21 15:20
PROVIDERS: ADMIT Internal Medicine; ATTEND Internal Medicine
DX: E87.5 Hyperkalemia (principal); I13.2 Hypertensive heart and chronic kidney disease with heart failure and with stage 5 chronic kidney disease, or end stage renal disease; N18.6 End stage renal disease; I50.40 Unspecified combined systolic (congestive) and diastolic (congestive) heart failure; E87.2 Acidosis; D63.1 Anemia in chronic kidney disease; E78.5 Hyperlipidemia, unspecified; E83.51 Hypocalcemia; F17.210 Nicotine dependence, cigarettes, uncomplicated; F12.90 Cannabis use, unspecified, uncomplicated; N25.0 Renal osteodystrophy; Z99.2 Dependence on renal dialysis; Z91.14 Patient's other noncompliance with medication regimen; Z91.15 Patient's noncompliance with renal dialysis; Z79.899 Other long term (current) drug therapy; Z71.89 Other specified counseling
CPT/HCPCS: 36415; 71045; 80053; 80061; 81003; 82962; 83036; 83735; 84132; 84439; 84443; 85025; 86705; 86706; 87340; 93005; 96365; 96375; 96376; 99285; G0378; J0610; 96374

== ENCOUNTER 2019-01-28 10:40 | Inpatient (IN) | payer MEDICAID ==
[~2019-01-28] VITALS: Ht 175.3 cm; Wt 73.2 kg
[~2019-01-28 10:40] MED LIST changes: +AMLO10TA8 PO
[2019-01-28 11:19] LABS: BASOPHILS # (AUTO) 0.03 x10^3/uL (0-0.1); BASOPHILS % (AUTO) 0 % (0-1); EOSINOPHILS # (AUTO) 0.15 x10^3/uL (0-0.4); EOSINOPHILS % (AUTO) 2 % (1-7); LYMPHOCYTES # (AUTO) 0.81 x10^3/uL (1-3.4); LYMPHOCYTES % (AUTO) 9 % (22-44); MD NO; MEAN CORPUSCULAR HEMOGLOBIN 30.9 pg (27.5-34.5); MEAN CORPUSCULAR HGB CONC 33.2 g/dL (33.2-36.2); MEAN CORPUSCULAR VOLUME 93.2 fL (81-97); MONOCYTES # (AUTO) 0.31 x10^3/uL (0.2-0.8); MONOCYTES % (AUTO) 3 % (2-9); NEUTROPHILS # (AUTO) 8.12 x10^3/uL (1.8-6.8); NEUTROPHILS % (AUTO) 86 % (42-75); PLATELET COUNT 212 x10^3/uL (130-400); RED BLOOD COUNT 4.84 x10^6/uL (4.38-5.82); RED CELL DISTRIBUTION WIDTH 15.4 % (9.4-14.8)
--- NOTE | 2019-01-28 11:20 | NUR ---
EXTRUDING MACHINE OPERATOR: PT TO ROOM FROM [facility]ANIEL[facility]
[2019-01-28 11:29] LABS: ALANINE AMINOTRANSFERASE 25 U/L (12-78); ALBUMIN 4.3 g/dL (3.4-5.0); ANION GAP 6 mmol/L (5-15); CALCIUM 8.4 mg/dL (8.5-10.1); CHLORIDE 116 mmol/L (98-107); CREATININE 9.45 mg/dL (0.7-1.3)
--- NOTE | 2019-01-28 11:30 | NUR ---
pt presented to ed with n/v and pt has not had dialysis x 2 weeks. pt a&ox4. pt placed in room and placed on bp, cardiac and cont. pulse oximeter. assessment completed. pt was seen in pit and orders received. urine sample given and sent to lab.
[2019-01-28 11:31] LABS: ALKALINE PHOSPHATASE 131 U/L (45-117); BILIRUBIN,TOTAL 0.3 mg/dL (0.2-1.0); TOTAL PROTEIN 8.2 g/dL (6.4-8.2)
[2019-01-28] MEDS ORDERED: DEXTROSE 50%, 50ML SYRINGE IVPush ONE (12:00)
[2019-01-28] MEDS ORDERED: CALCIUM CHLORIDE 10%, 10ML SYR IVPush ONE (12:00)
[2019-01-28] MEDS ORDERED: INSULIN REGULAR 100 UNITS/ML, 3ML VIAL IVPush ONE (12:00)
[2019-01-28] MEDS ORDERED: ALBUTEROL 0.5%, 20ML NPPB ONE (12:00)
--- NOTE | 2019-01-28 12:00 | NUR ---
report receieved from SHAHZAD Villafana at bedside. pt a&ox 4, resps even and unlabored. This RN clarified calcium order with MD La, to be switched to calcium gluconate.
[2019-01-28 12:01] LABS: CULTURE INDICATED? NO; MICROSCOPIC NOT IND
--- NOTE | 2019-01-28 12:03 | NUR ---
report given to familia sepulveda
[2019-01-28] MEDS ORDERED: DEXTROSE 50%, 50ML SYRINGE ONE (12:14)
[2019-01-28] MEDS ORDERED: CALCIUM CHLORIDE 10%, 10ML SYR ONE (12:14)
[2019-01-28] MEDS ORDERED: INSULIN LISPRO 100 UNITS/ML, PEN ONE (12:14)
[2019-01-28] MEDS ORDERED: CALCIUM GLUCONATE 4.6 MEQ/10 ML ONE (12:22)
[2019-01-28] MEDS ORDERED: CALCIUM GLUCONATE 0.46MEQ/1ML IVPush ONE (12:30)
[2019-01-28] MEDS ORDERED: CALCIUM GLUCONATE 4.6 MEQ in SODIUM CHLORIDE 0.9% 50 ML IV ONE (12:30)
--- NOTE | 2019-01-28 12:45 | NUR ---
pt medicated per emar, tolerated well. calcium gluconate infusion ordered and administered per pharmacy, infusing at prescribed drip rate at this time. pt a&o, resps even and unlabored, nsr on equipment monitor phototypesetting with no ectopy. pt denies pain.
[2019-01-28] MEDS ORDERED: SODIUM CHLORIDE FLUSH 10ML SYR IVF ONE (13:00)
--- NOTE | 2019-01-28 13:09 | NUR ---
REPORT GIVEN TO RECEIVING RN BELIA. HOSPITAL BED NOT IN ROOM YET, RN TO CALL WHEN ROOM IS READY. PT AWAITING TRANSPORT AT THIS TIME.
--- NOTE | 2019-01-28 13:30 | NUR ---
pts fingerstick glucose checked, 45. pt is a&ox4, resps even and unlabored, speaking in full sentences. MD Law notified. Pt provided with juice x 2, soda x 1, and crackers with peanut butter per MD instructions. pt tolerating well at this time.
[2019-01-28] MEDS ORDERED: DEXTROSE 50%, 50ML SYRINGE IVPush PRN (14:30)
[2019-01-28] MEDS ORDERED: ACETAMINOPHEN 325 MG TABLET PO PRN (14:30)
[2019-01-28] MEDS ORDERED: ONDANSETRON 2MG/ML, 2ML IVPush PRN (14:30)
[2019-01-28] MEDS ORDERED: GLUCAGON 1 MG IM PRN (14:30)
[2019-01-28] MEDS ORDERED: hydrALAzine 20 MG/ML, 1ML IVPush PRN (14:30)
[2019-01-28] MEDS: HEPARIN 5,000 UNITS/ML, 1ML SQ SCH ×2 (14:30→22:30)
[2019-01-28] MEDS ORDERED: DEXTROSE 4 GM TAB.CHEW PO PRN (14:30)
--- NOTE | 2019-01-28 14:32 | NUR ---
pt transported to dialysis before this RN could recheck fsbs. this RN went to dialysis to recheck bg, fsbs 108 at this time. pt a&o, resps even and unlabored, nadn. tolerated PO well.
[2019-01-28 15:50] LABS: HEMOGLOBIN A1C 4.9 % (4.2-6.3)
[2019-01-28] MEDS ORDERED: INSULIN LISPRO 100 UNITS/ML, PEN SQ-INSULIN SCH (16:00)
[2019-01-28] MEDS: SODIUM CHLORIDE FLUSH 10ML SYR IVF SCH (16:43)
[2019-01-28 16:44] VITALS: BP 156/98
[2019-01-28] MEDS: CARVEDILOL 25 MG TABLET PO SCH (21:36)
[2019-01-28 21:45] VITALS: BP 131/92
[2019-01-29 01:19] VITALS: BP 129/83
[2019-01-29 06:05] LABS: BASOPHILS # (AUTO) 0.02 x10^3/uL (0-0.1); BASOPHILS % (AUTO) 0 % (0-1); EOSINOPHILS # (AUTO) 0.19 x10^3/uL (0-0.4); EOSINOPHILS % (AUTO) 4 % (1-7); LYMPHOCYTES # (AUTO) 1.36 x10^3/uL (1-3.4); LYMPHOCYTES % (AUTO) 26 % (22-44); MD NO; MEAN CORPUSCULAR HEMOGLOBIN 31.6 pg (27.5-34.5); MEAN CORPUSCULAR HGB CONC 34.1 g/dL (33.2-36.2); MEAN CORPUSCULAR VOLUME 92.8 fL (81-97); MEAN PLATELET VOLUME 8.4 fL (7.4-10.4); MONOCYTES # (AUTO) 0.46 x10^3/uL (0.2-0.8); MONOCYTES % (AUTO) 9 % (2-9); NEUTROPHILS # (AUTO) 3.19 x10^3/uL (1.8-6.8); NEUTROPHILS % (AUTO) 61 % (42-75); PLATELET COUNT 172 x10^3/uL (130-400); RED BLOOD COUNT 4.48 x10^6/uL (4.38-5.82); RED CELL DISTRIBUTION WIDTH 14.9 % (9.4-14.8)
[2019-01-29 06:09] LABS: ALBUMIN 3.9 g/dL (3.4-5.0); ANION GAP 9 mmol/L (5-15); CALCIUM 8.3 mg/dL (8.5-10.1); CHLORIDE 103 mmol/L (98-107)
[2019-01-29 06:22] LABS: % IRON SATURATION 41 % (20-55); ALANINE AMINOTRANSFERASE 23 U/L (12-78); ALKALINE PHOSPHATASE 77 U/L (45-117); BILIRUBIN,TOTAL 0.5 mg/dL (0.2-1.0); CREATININE 6.44 mg/dL (0.7-1.3); IRON LEVEL 95 mcg/dL (65-175); THYROID STIMULATING HORMONE 0.193 mIU/L (0.358-3.740); TOTAL IRON BINDING CAPACITY 233 mcg/dL (250-450); TOTAL PROTEIN 7.6 g/dL (6.4-8.2)
[2019-01-29] MEDS: HEPARIN 5,000 UNITS/ML, 1ML SQ SCH ×3 (06:30→22:14)
[2019-01-29 08:13] VITALS: BP 128/89
[2019-01-29] MEDS: AMLODIPINE 10 MG TAB PO SCH (08:40)
[2019-01-29] MEDS: CARVEDILOL 25 MG TABLET PO SCH ×2 (08:41→22:13)
[2019-01-29] MEDS: LISINOPRIL 20 MG TABLET PO SCH (08:41)
[2019-01-29] MEDS: SODIUM CHLORIDE FLUSH 10ML SYR IVF SCH ×2 (09:00→22:14)
[2019-01-29] MEDS: NICOTINE 14MG/24 HR PATCH.TD24 TD SCH (09:00)
[2019-01-29] MEDS ORDERED: ERGOCALCIFEROL 50,000 UNIT CAPSULE PO SCH (11:00)
[2019-01-29 14:00] VITALS: BP 124/79
[2019-01-29 19:44] VITALS: BP 119/80
[2019-01-29 22:11] VITALS: BP 137/95
[2019-01-30 03:21] VITALS: BP 127/76
[2019-01-30] MEDS: HEPARIN 5,000 UNITS/ML, 1ML SQ SCH ×2 (06:23→14:30)
[2019-01-30 06:25] LABS: BASOPHILS # (AUTO) 0.05 x10^3/uL (0-0.1); BASOPHILS % (AUTO) 1 % (0-1); EOSINOPHILS # (AUTO) 0.18 x10^3/uL (0-0.4); EOSINOPHILS % (AUTO) 4 % (1-7); LYMPHOCYTES # (AUTO) 1.51 x10^3/uL (1-3.4); LYMPHOCYTES % (AUTO) 29 % (22-44); MD NO; MEAN CORPUSCULAR HEMOGLOBIN 31.4 pg (27.5-34.5); MEAN CORPUSCULAR HGB CONC 33.6 g/dL (33.2-36.2); MEAN CORPUSCULAR VOLUME 93.4 fL (81-97); MEAN PLATELET VOLUME 8.3 fL (7.4-10.4); MONOCYTES # (AUTO) 0.51 x10^3/uL (0.2-0.8); MONOCYTES % (AUTO) 10 % (2-9); NEUTROPHILS % (AUTO) 56 % (42-75); PLATELET COUNT 153 x10^3/uL (130-400); RED BLOOD COUNT 4.52 x10^6/uL (4.38-5.82); RED CELL DISTRIBUTION WIDTH 14.8 % (9.4-14.8)
[2019-01-30 06:36] LABS: CHLORIDE 102 mmol/L (98-107)
[2019-01-30 06:44] LABS: ALANINE AMINOTRANSFERASE 20 U/L (12-78); ALBUMIN 3.7 g/dL (3.4-5.0); ALKALINE PHOSPHATASE 80 U/L (45-117); ANION GAP 7 mmol/L (5-15); BILIRUBIN,TOTAL 0.4 mg/dL (0.2-1.0); CREATININE 5.81 mg/dL (0.7-1.3); TOTAL PROTEIN 7.2 g/dL (6.4-8.2)
[2019-01-30 07:24] VITALS: BP 132/84
[2019-01-30] MEDS: SODIUM CHLORIDE FLUSH 10ML SYR IVF SCH (08:37)
[2019-01-30] MEDS: NICOTINE 14MG/24 HR PATCH.TD24 TD SCH (09:00)
[2019-01-30 12:47] VITALS: BP 133/93
[2019-01-30] MEDS: LISINOPRIL 20 MG TABLET PO SCH (13:00)
[2019-01-30] MEDS: CARVEDILOL 25 MG TABLET PO SCH (13:00)
[2019-01-30] MEDS: AMLODIPINE 10 MG TAB PO SCH (13:00)
[2019-01-30] MEDS ORDERED: ERGO500017 PO (13:53)
== END 2019-01-30 15:10 | disposition home or self-care (01) | DRG 640 ==
LOC: ED 11:29 → EDIP 12:42 → 4EST 13:40 → DCLOUNGE 01-30 15:10
PROVIDERS: ADMIT Internal Medicine; ATTEND Internal Medicine
PROC: 5A1D70Z Performance of Urinary Filtration, Intermittent, Less than 6 Hours Per Day (ICD-10-PCS; principal; 2019-01-28)
PROC: 5A1D70Z Performance of Urinary Filtration, Intermittent, Less than 6 Hours Per Day (ICD-10-PCS; 2019-01-29)
PROC: 5A1D70Z Performance of Urinary Filtration, Intermittent, Less than 6 Hours Per Day (ICD-10-PCS; 2019-01-30)
DX: E87.5 Hyperkalemia (principal); N18.6 End stage renal disease; I13.2 Hypertensive heart and chronic kidney disease with heart failure and with stage 5 chronic kidney disease, or end stage renal disease; I50.32 Chronic diastolic (congestive) heart failure; D63.8 Anemia in other chronic diseases classified elsewhere; E11.649 Type 2 diabetes mellitus with hypoglycemia without coma; E11.22 Type 2 diabetes mellitus with diabetic chronic kidney disease; F12.90 Cannabis use, unspecified, uncomplicated; Z72.0 Tobacco use; Z79.4 Long term (current) use of insulin; Z80.0 Family history of malignant neoplasm of digestive organs; Z99.2 Dependence on renal dialysis; Z91.14 Patient's other noncompliance with medication regimen; Z71.6 Tobacco abuse counseling
CPT/HCPCS: 36415; 80053; 81003; 82306; 82728; 82962; 83036; 83540; 83550; 83690; 83735; 83970; 84100; 84439; 84443; 84550; 85025; 86705; 86706; 87340; 93005; 96374; 96375; 99285; G0378; J0610; J1815

== ENCOUNTER 2019-03-01 16:02 | Inpatient (IN) | payer MEDICAID ==
[~2019-03-01] VITALS: Ht 175.3 cm; Wt 73.2 kg
[~2019-03-01 16:02] MED LIST changes: +ERGO500017 PO
--- NOTE | 2019-03-01 16:36 | NUR ---
PATIENT ARRIVES TO ER WITH NEEDS OF DIALYSIS. HE WAS LAST DIALEZED [facility]. HE USUALLY GOES TO [facility]. HE STATES HE HAS BEEN IN KIDNEY FAILURE FOR 5 YEARS. PATIENT IS HERE ON VACATION AND STATES HE HAS NO WAY TO GET DIALIZED IN OUTLOOK.
[2019-03-01 16:52] LABS: BASOPHILS # (AUTO) 0.03 x10^3/uL (0-0.1); BASOPHILS % (AUTO) 1 % (0-1); EOSINOPHILS # (AUTO) 0.14 x10^3/uL (0-0.4); EOSINOPHILS % (AUTO) 3 % (1-7); LYMPHOCYTES # (AUTO) 1.01 x10^3/uL (1-3.4); LYMPHOCYTES % (AUTO) 19 % (22-44); MD NO; MEAN CORPUSCULAR HEMOGLOBIN 31.5 pg (27.5-34.5); MEAN CORPUSCULAR HGB CONC 34.2 g/dL (33.2-36.2); MEAN CORPUSCULAR VOLUME 92.2 fL (81-97); MEAN PLATELET VOLUME 8.1 fL (7.4-10.4); MONOCYTES # (AUTO) 0.27 x10^3/uL (0.2-0.8); MONOCYTES % (AUTO) 5 % (2-9); NEUTROPHILS # (AUTO) 3.82 x10^3/uL (1.8-6.8); NEUTROPHILS % (AUTO) 72 % (42-75); PLATELET COUNT 224 x10^3/uL (130-400); RED BLOOD COUNT 4.11 x10^6/uL (4.38-5.82)
[2019-03-01 17:03] LABS: ALBUMIN 3.6 g/dL (3.4-5.0); ANION GAP 6 mmol/L (5-15); CALCIUM 8.3 mg/dL (8.5-10.1); CHLORIDE 118 mmol/L (98-107); CREATININE 9.64 mg/dL (0.7-1.3)
--- NOTE | 2019-03-01 17:42 | NUR ---
AWAITING ER WORKUP. PATIENT IN BED, RAILS UP. DENIES PAIN.
--- NOTE | 2019-03-01 17:47 | NUR ---
PATIENT LEFT FOR RADIOLOGY.
--- NOTE | 2019-03-01 17:56 | NUR ---
HOSPITALIST HEAD BOOKKEEPER HERE TALKING TO PATIENT. SHE STATES WE ARE WAITING ON NEPHROLOGY MD. PATIENT IS BEING ADMITTED TO [facility] FOR NEPHOROLOGY CONSULT AND DIALYSIS.
[2019-03-01] MEDS ORDERED: LIDODERM 5% PATCH TD PRN (19:00)
[2019-03-01] MEDS ORDERED: TEMAZEPAM 15 MG CAPSULE PO PRN (19:00)
[2019-03-01] MEDS ORDERED: hydrALAzine 20 MG/ML, 1ML IVPush PRN (19:00)
[2019-03-01] MEDS ORDERED: ACETAMINOPHEN 325 MG TABLET PO PRN (19:00)
[2019-03-01] MEDS ORDERED: BISACODYL 10 MG SUPP PR PRN (19:00)
--- NOTE | 2019-03-01 19:08 | NUR ---
REPORT RECEIVED FROM SHAHZAD BENAVIDEZ. ASSUMED CARE OF PT. PT RESTING ON GURNEY IN NAD. FAMILY AT BEDSIDE. VITALS STABLE. PT TO BE ADMITTED. AWAITING ADMISSION ORDERS WILL CONTINUE TO MONITOR.
--- NOTE | 2019-03-01 19:12 | NUR ---
PER DAY SHIFT RN, PT REFUSED TO BE TREATED WITH INSULIN AND GLUCOSE TO BRING DOWN HIS K. HE STATES HIS BLOOD SUGAR DROPPED AND WOULDN'T STAY UP.
--- NOTE | 2019-03-01 19:51 | NUR ---
REPORT TO SHAHZAD PARK.
[2019-03-01] MEDS: HEPARIN 5,000 UNITS/ML, 1ML SQ SCH (20:00)
[2019-03-01 20:08] VITALS: BP 148/98
[2019-03-02 02:00] VITALS: BP 143/84
[2019-03-02] MEDS: HEPARIN 5,000 UNITS/ML, 1ML SQ SCH ×3 (04:00→20:00)
[2019-03-02 05:58] LABS: ANION GAP 5 mmol/L (5-15); CALCIUM 7.8 mg/dL (8.5-10.1); CHLORIDE 109 mmol/L (98-107); CREATININE 7.61 mg/dL (0.7-1.3)
[2019-03-02 06:03] LABS: BASOPHILS # (AUTO) 0.03 x10^3/uL (0-0.1); BASOPHILS % (AUTO) 1 % (0-1); EOSINOPHILS # (AUTO) 0.16 x10^3/uL (0-0.4); EOSINOPHILS % (AUTO) 4 % (1-7); LYMPHOCYTES # (AUTO) 1.27 x10^3/uL (1-3.4); LYMPHOCYTES % (AUTO) 31 % (22-44); MD NO; MEAN CORPUSCULAR HEMOGLOBIN 31.2 pg (27.5-34.5); MEAN CORPUSCULAR HGB CONC 34.2 g/dL (33.2-36.2); MEAN CORPUSCULAR VOLUME 91.4 fL (81-97); MONOCYTES # (AUTO) 0.37 x10^3/uL (0.2-0.8); MONOCYTES % (AUTO) 9 % (2-9); NEUTROPHILS # (AUTO) 2.28 x10^3/uL (1.8-6.8); NEUTROPHILS % (AUTO) 55 % (42-75); PLATELET COUNT 181 x10^3/uL (130-400); RED BLOOD COUNT 3.99 x10^6/uL (4.38-5.82); RED CELL DISTRIBUTION WIDTH 14.5 % (9.4-14.8)
[2019-03-02 08:00] VITALS: BP 142/90
[2019-03-02] MEDS ORDERED: ERGOCALCIFEROL 50,000 UNIT CAPSULE PO SCH (10:00)
[2019-03-02 13:37] VITALS: BP 135/88
[2019-03-02 20:00] VITALS: BP 138/90
[2019-03-03 00:48] VITALS: BP 137/75
[2019-03-03] MEDS: HEPARIN 5,000 UNITS/ML, 1ML SQ SCH ×2 (04:00→12:00)
[2019-03-03 05:18] LABS: BASOPHILS # (AUTO) 0.04 x10^3/uL (0-0.1); BASOPHILS % (AUTO) 1 % (0-1); EOSINOPHILS % (AUTO) 4 % (1-7); LYMPHOCYTES # (AUTO) 1.44 x10^3/uL (1-3.4); LYMPHOCYTES % (AUTO) 28 % (22-44); MD NO; MEAN CORPUSCULAR HEMOGLOBIN 31.1 pg (27.5-34.5); MEAN CORPUSCULAR HGB CONC 33.7 g/dL (33.2-36.2); MEAN CORPUSCULAR VOLUME 92.4 fL (81-97); MEAN PLATELET VOLUME 8.2 fL (7.4-10.4); MONOCYTES # (AUTO) 0.42 x10^3/uL (0.2-0.8); MONOCYTES % (AUTO) 8 % (2-9); NEUTROPHILS # (AUTO) 3.05 x10^3/uL (1.8-6.8); NEUTROPHILS % (AUTO) 59 % (42-75); PLATELET COUNT 165 x10^3/uL (130-400); RED BLOOD COUNT 4.08 x10^6/uL (4.38-5.82); RED CELL DISTRIBUTION WIDTH 15.2 % (9.4-14.8)
[2019-03-03 05:26] LABS: ALBUMIN 3.3 g/dL (3.4-5.0); ANION GAP 5 mmol/L (5-15); CALCIUM 8.4 mg/dL (8.5-10.1); CHLORIDE 109 mmol/L (98-107)
[2019-03-03 05:29] LABS: ALANINE AMINOTRANSFERASE 26 U/L (12-78); ALKALINE PHOSPHATASE 103 U/L (45-117); BILIRUBIN,TOTAL 0.2 mg/dL (0.2-1.0); TOTAL PROTEIN 6.4 g/dL (6.4-8.2)
[2019-03-03 06:30] VITALS: BP 143/97
[2019-03-03 14:14] VITALS: BP 148/96
== END 2019-03-03 15:20 | disposition home or self-care (01) | DRG 640 ==
LOC: ED 17:27 → EDIP 19:07 → 4WST 20:03 → DCLOUNGE 03-03 15:18
PROVIDERS: ADMIT Hospitalist; ATTEND Hospitalist
PROC: 5A1D70Z Performance of Urinary Filtration, Intermittent, Less than 6 Hours Per Day (ICD-10-PCS; principal; 2019-03-01)
PROC: 5A1D70Z Performance of Urinary Filtration, Intermittent, Less than 6 Hours Per Day (ICD-10-PCS; 2019-03-02)
PROC: 5A1D70Z Performance of Urinary Filtration, Intermittent, Less than 6 Hours Per Day (ICD-10-PCS; 2019-03-03)
DX: E87.5 Hyperkalemia (principal); N18.6 End stage renal disease; I13.2 Hypertensive heart and chronic kidney disease with heart failure and with stage 5 chronic kidney disease, or end stage renal disease; I50.32 Chronic diastolic (congestive) heart failure; E87.2 Acidosis; E11.22 Type 2 diabetes mellitus with diabetic chronic kidney disease; E11.649 Type 2 diabetes mellitus with hypoglycemia without coma; D63.1 Anemia in chronic kidney disease; E55.9 Vitamin D deficiency, unspecified; F12.10 Cannabis abuse, uncomplicated; F17.210 Nicotine dependence, cigarettes, uncomplicated; Z80.0 Family history of malignant neoplasm of digestive organs; Z91.19 Patient's noncompliance with other medical treatment and regimen; Z99.2 Dependence on renal dialysis
CPT/HCPCS: 36415; 71045; 80048; 80053; 82040; 83735; 84100; 85025; 86705; 86706; 87340; 99285; G0378

== ENCOUNTER 2019-03-24 08:07 | Inpatient (IN) | payer MEDICAID ==
[~2019-03-24] VITALS: Ht 175.3 cm; Wt 74.8 kg
[2019-03-24] MEDS ORDERED: SODIUM CHLORIDE FLUSH 10ML SYR IVF ONE (09:00)
[2019-03-24 09:11] LABS: BASOPHILS # (AUTO) 0.04 x10^3/uL (0-0.1); BASOPHILS % (AUTO) 1 % (0-1); EOSINOPHILS # (AUTO) 0.17 x10^3/uL (0-0.4); EOSINOPHILS % (AUTO) 4 % (1-7); LYMPHOCYTES # (AUTO) 0.94 x10^3/uL (1-3.4); LYMPHOCYTES % (AUTO) 22 % (22-44); MD NO; MEAN CORPUSCULAR HEMOGLOBIN 31.6 pg (27.5-34.5); MEAN CORPUSCULAR HGB CONC 32.8 g/dL (33.2-36.2); MEAN CORPUSCULAR VOLUME 96.3 fL (81-97); MEAN PLATELET VOLUME 8.3 fL (7.4-10.4); MONOCYTES # (AUTO) 0.24 x10^3/uL (0.2-0.8); MONOCYTES % (AUTO) 6 % (2-9); NEUTROPHILS # (AUTO) 2.88 x10^3/uL (1.8-6.8); NEUTROPHILS % (AUTO) 67 % (42-75); PLATELET COUNT 180 x10^3/uL (130-400); RED BLOOD COUNT 4.42 x10^6/uL (4.38-5.82); RED CELL DISTRIBUTION WIDTH 15.5 % (9.4-14.8)
--- NOTE | 2019-03-24 09:15 | NUR ---
BEDSIDE REPORT FROM SHAHZAD VELASCO. ASSUMED CARE OF PATIENT AT THIS TIME. PATIENT SITTING IN GURNEY SPEAKING TO SPOUSE AT BEDSIDE. AWAITING LABS. NO ADDITIONAL NEEDS AT THIS TIME.
[2019-03-24 09:18] LABS: ALBUMIN 4.1 g/dL (3.4-5.0); ANION GAP 6 mmol/L (5-15); CALCIUM 8.8 mg/dL (8.5-10.1); CHLORIDE 117 mmol/L (98-107)
[2019-03-24 09:21] LABS: ALANINE AMINOTRANSFERASE 27 U/L (12-78); ALKALINE PHOSPHATASE 95 U/L (45-117); BILIRUBIN,TOTAL 0.3 mg/dL (0.2-1.0); CREATININE 9.46 mg/dL (0.7-1.3); TOTAL PROTEIN 7.9 g/dL (6.4-8.2)
[2019-03-24] MEDS ORDERED: ALBUTEROL 0.5%, 20ML NPPB ONE (10:00)
[2019-03-24] MEDS ORDERED: POLYETHYLENE GLYCOL 17 GM PACKET PO PRN (10:30)
[2019-03-24] MEDS ORDERED: ONDANSETRON 2MG/ML, 2ML IVPush PRN (10:30)
[2019-03-24] MEDS ORDERED: hydrALAzine 20 MG/ML, 1ML IVPush PRN (10:30)
[2019-03-24] MEDS: NICOTINE 14MG/24 HR PATCH.TD24 TD SCH (10:30)
[2019-03-24] MEDS ORDERED: BISACODYL 10 MG SUPP PR PRN (10:30)
[2019-03-24] MEDS ORDERED: ONDANSETRON ODT 4 MG PO PRN (10:30)
[2019-03-24] MEDS ORDERED: ACETAMINOPHEN 325 MG TABLET PO PRN (10:30)
[2019-03-24] MEDS ORDERED: DOCUSATE 100 MG CAPSULE PO PRN (10:30)
--- NOTE | 2019-03-24 10:46 | NUR ---
VS UPDATED IN CHART, SPOUSE AT BEDSIDE. PATIENT AMB TO BATHROOM WITH STEADY GAIT, NAD NOTED. AWAITING BED ASSIGNMENT. NO ADDITIONAL NEEDS AT THIS TIME.
--- NOTE | 2019-03-24 12:00 | NUR ---
VS UPDATED IN CHART, AWAITING BED ASSIGNMENT. PATIENT AWARE. CALL LIGHT WITHIN REACH. PATIENT RESTING COMFORTABLY IN RCOOTER. NO ADDITIONAL NEEDS AT THIS TIME.
--- NOTE | 2019-03-24 12:33 | NUR ---
REPORT TO SHAHZAD CELAYA. AWAITING TRANSPORT.
[2019-03-24 12:59] VITALS: BP 148/92
[2019-03-24] MEDS ORDERED: DEXTROSE 50%, 50ML SYRINGE IVPush PRN (13:00)
[2019-03-24] MEDS: HEPARIN 5,000 UNITS/ML, 1ML SQ SCH ×2 (13:00→21:00)
[2019-03-24] MEDS ORDERED: ERGOCALCIFEROL 50,000 UNIT CAPSULE PO SCH (13:00)
[2019-03-24] MEDS ORDERED: GLUCAGON 1 MG IM PRN (13:00)
[2019-03-24] MEDS ORDERED: DEXTROSE 4 GM TAB.CHEW PO PRN (13:00)
--- NOTE | 2019-03-24 13:02 | NUR ---
PATIENT TRANSFERRED TO HOSPITAL BED UPSTAIRS.
[2019-03-24 20:45] VITALS: BP 136/95
[2019-03-24] MEDS: CARVEDILOL 25 MG TABLET PO SCH (20:59)
[2019-03-24] MEDS: SODIUM CHLORIDE FLUSH 10ML SYR IVF SCH (21:00)
[2019-03-25 00:35] VITALS: BP 127/89
[2019-03-25] MEDS: HEPARIN 5,000 UNITS/ML, 1ML SQ SCH ×2 (05:00→13:00)
[2019-03-25 06:20] LABS: ALBUMIN 3.8 g/dL (3.4-5.0); ANION GAP 9 mmol/L (5-15); CALCIUM 8.4 mg/dL (8.5-10.1); CHLORIDE 101 mmol/L (98-107)
[2019-03-25 06:24] LABS: BASOPHILS # (AUTO) 0.03 x10^3/uL (0-0.1); BASOPHILS % (AUTO) 1 % (0-1); EOSINOPHILS # (AUTO) 0.17 x10^3/uL (0-0.4); EOSINOPHILS % (AUTO) 3 % (1-7); LYMPHOCYTES # (AUTO) 1.33 x10^3/uL (1-3.4); LYMPHOCYTES % (AUTO) 25 % (22-44); MD NO; MEAN CORPUSCULAR HEMOGLOBIN 31.3 pg (27.5-34.5); MEAN CORPUSCULAR HGB CONC 33.4 g/dL (33.2-36.2); MEAN CORPUSCULAR VOLUME 93.6 fL (81-97); MEAN PLATELET VOLUME 8.3 fL (7.4-10.4); MONOCYTES # (AUTO) 0.44 x10^3/uL (0.2-0.8); MONOCYTES % (AUTO) 8 % (2-9); NEUTROPHILS # (AUTO) 3.42 x10^3/uL (1.8-6.8); NEUTROPHILS % (AUTO) 64 % (42-75); PLATELET COUNT 157 x10^3/uL (130-400); RED BLOOD COUNT 4.42 x10^6/uL (4.38-5.82)
[2019-03-25] MEDS: AMLODIPINE 10 MG TAB PO SCH ×2 (09:00→14:36)
[2019-03-25] MEDS: CARVEDILOL 25 MG TABLET PO SCH ×2 (09:00→14:36)
[2019-03-25] MEDS: SODIUM CHLORIDE FLUSH 10ML SYR IVF SCH (09:00)
[2019-03-25] MEDS: LISINOPRIL 40 MG TABLET PO SCH ×2 (09:00→14:36)
[2019-03-25 09:06] VITALS: BP 140/93
[2019-03-25] MEDS: NICOTINE 14MG/24 HR PATCH.TD24 TD SCH (09:56)
[2019-03-25 13:25] VITALS: BP 137/94
[2019-03-25] MEDS ORDERED: CARV25TA12 PO (14:49)
[2019-03-25] MEDS ORDERED: ERGO500017 PO (14:49)
[2019-03-25] MEDS ORDERED: LISI40TA PO (14:49)
[2019-03-25] MEDS ORDERED: AMLO10TA8 PO (14:49)
== END 2019-03-25 15:52 | disposition home or self-care (01) | DRG 640 ==
LOC: ED 09:43 → EDIP 09:48 → 4WST 12:49 → DCLOUNGE 03-25 15:46
PROVIDERS: ADMIT Internal Medicine; ATTEND Internal Medicine
PROC: 5A1D70Z Performance of Urinary Filtration, Intermittent, Less than 6 Hours Per Day (ICD-10-PCS; principal; 2019-03-24)
PROC: 5A1D70Z Performance of Urinary Filtration, Intermittent, Less than 6 Hours Per Day (ICD-10-PCS; 2019-03-25)
DX: E87.5 Hyperkalemia (principal); N18.6 End stage renal disease; I13.2 Hypertensive heart and chronic kidney disease with heart failure and with stage 5 chronic kidney disease, or end stage renal disease; I50.32 Chronic diastolic (congestive) heart failure; E11.22 Type 2 diabetes mellitus with diabetic chronic kidney disease; E87.2 Acidosis; D63.8 Anemia in other chronic diseases classified elsewhere; E55.9 Vitamin D deficiency, unspecified; F12.90 Cannabis use, unspecified, uncomplicated; F17.210 Nicotine dependence, cigarettes, uncomplicated; Z80.0 Family history of malignant neoplasm of digestive organs; Z91.14 Patient's other noncompliance with medication regimen; Z91.15 Patient's noncompliance with renal dialysis; Z99.2 Dependence on renal dialysis
CPT/HCPCS: 36415; 80053; 80069; 83735; 84100; 85025; 93005; 99285; G0378

== ENCOUNTER 2019-04-24 19:35 | Inpatient (IN) | payer MEDICAID, OTHER ==
[~2019-04-24] VITALS: Ht 175.3 cm; Wt 71.5 kg
[2019-04-24 20:22] LABS: BASOPHILS # (AUTO) 0.03 x10^3/uL (0-0.1); BASOPHILS % (AUTO) 1 % (0-1); EOSINOPHILS # (AUTO) 0.15 x10^3/uL (0-0.4); EOSINOPHILS % (AUTO) 3 % (1-7); LYMPHOCYTES # (AUTO) 1.19 x10^3/uL (1-3.4); LYMPHOCYTES % (AUTO) 25 % (22-44); MD NO; MEAN CORPUSCULAR HEMOGLOBIN 31.7 pg (27.5-34.5); MEAN CORPUSCULAR HGB CONC 33.2 g/dL (33.2-36.2); MEAN CORPUSCULAR VOLUME 95.5 fL (81-97); MEAN PLATELET VOLUME 7.8 fL (7.4-10.4); MONOCYTES # (AUTO) 0.35 x10^3/uL (0.2-0.8); MONOCYTES % (AUTO) 7 % (2-9); NEUTROPHILS # (AUTO) 2.97 x10^3/uL (1.8-6.8); NEUTROPHILS % (AUTO) 63 % (42-75); PLATELET COUNT 198 x10^3/uL (130-400); RED BLOOD COUNT 4.36 x10^6/uL (4.38-5.82); RED CELL DISTRIBUTION WIDTH 14.9 % (9.4-14.8)
--- NOTE | 2019-04-24 20:26 | NUR ---
GENERAL MALAISE, CHEST DISCOMFORT AND FLORES. PT HAS NOT HAD DIALYIS SINCE WEDNESDAY. IV ESTABLISHED WITH BLOOD DRAWN, ON MONITOR AND EKG PERFORMED
[2019-04-24 20:33] LABS: ALBUMIN 4.2 g/dL (3.4-5.0); ANION GAP 5 mmol/L (5-15); CALCIUM 8.8 mg/dL (8.5-10.1); CHLORIDE 109 mmol/L (98-107)
[2019-04-24] MEDS ORDERED: SODIUM BICARB 8.4%, 50ML SYRINGE IVPush ONE (21:00)
[2019-04-24] MEDS ORDERED: SODIUM CHLORIDE FLUSH 10ML SYR IVF PRN (21:30)
[2019-04-24] MEDS ORDERED: SODIUM BICARB 8.4%, 50ML SYRINGE ONE (21:31)
--- NOTE | 2019-04-24 21:45 | NUR ---
PT RESTING ON HEIDY GUTHRIE DEPUTY AT BEDSIDE. PT AND DEPUTY AWARE THAT PT IS TO BE ADMITTED AND HAVE HD TONIGHT.
--- NOTE | 2019-04-24 22:05 | NUR ---
PT TAKEN TO DIALYSIS AT THIS TIME. PT TO BE TRANSFERED TO TELE ROOM AFTER DIALYSIS.
[2019-04-24] MEDS ORDERED: ERGOCALCIFEROL 50,000 UNIT CAPSULE PO SCH (23:30)
[2019-04-25 01:55] VITALS: BP 123/85
[2019-04-25 06:40] VITALS: BP 129/92
[2019-04-25 09:21] LABS: ANION GAP 7 mmol/L (5-15); CALCIUM 9.1 mg/dL (8.5-10.1); CHLORIDE 105 mmol/L (98-107)
[2019-04-25 13:25] VITALS: BP 161/88
[2019-04-25 14:02] VITALS: BP 125/77
[2019-04-25] MEDS: LISINOPRIL 40 MG TABLET PO SCH (14:04)
[2019-04-25] MEDS: AMLODIPINE 10 MG TAB PO SCH (14:05)
[2019-04-25] MEDS: CARVEDILOL 25 MG TABLET PO SCH (14:05)
[2019-04-25 18:40] VITALS: BP 130/88
[2019-04-26 00:30] VITALS: BP 133/92
[2019-04-26] MEDS: CARVEDILOL 25 MG TABLET PO SCH ×2 (00:35→13:09)
[2019-04-26 06:27] LABS: ANION GAP 6 mmol/L (5-15); CALCIUM 9.3 mg/dL (8.5-10.1); CHLORIDE 101 mmol/L (98-107); CREATININE 7.23 mg/dL (0.7-1.3)
[2019-04-26 07:05] VITALS: BP 133/97
[2019-04-26 13:06] VITALS: BP 134/94
[2019-04-26] MEDS: LISINOPRIL 40 MG TABLET PO SCH (13:08)
[2019-04-26] MEDS: AMLODIPINE 10 MG TAB PO SCH (13:09)
== END 2019-04-26 17:28 | DRG 640 ==
LOC: ED 20:34 → MERGE 20:34 → EDIP 21:23 → 5SO 04-25 00:08 → 4WST 04-25 01:17
PROVIDERS: ADMIT Family Medicine; ATTEND Family Medicine
PROC: 5A1D70Z Performance of Urinary Filtration, Intermittent, Less than 6 Hours Per Day (ICD-10-PCS; principal; 2019-04-24)
PROC: 5A1D70Z Performance of Urinary Filtration, Intermittent, Less than 6 Hours Per Day (ICD-10-PCS; 2019-04-25)
PROC: 5A1D70Z Performance of Urinary Filtration, Intermittent, Less than 6 Hours Per Day (ICD-10-PCS; 2019-04-26)
DX: E87.5 Hyperkalemia (principal); N18.6 End stage renal disease; I13.2 Hypertensive heart and chronic kidney disease with heart failure and with stage 5 chronic kidney disease, or end stage renal disease; I50.32 Chronic diastolic (congestive) heart failure; D63.1 Anemia in chronic kidney disease; E55.9 Vitamin D deficiency, unspecified; E78.5 Hyperlipidemia, unspecified; F12.90 Cannabis use, unspecified, uncomplicated; F17.210 Nicotine dependence, cigarettes, uncomplicated; I25.10 Atherosclerotic heart disease of native coronary artery without angina pectoris; Z80.0 Family history of malignant neoplasm of digestive organs; Z91.14 Patient's other noncompliance with medication regimen; Z99.2 Dependence on renal dialysis
CPT/HCPCS: 36415; 80048; 82040; 85025; 90935; 93005; 96374; G0378

== ENCOUNTER 2021-02-27 05:52 | Emergency (ER) | payer MEDICAID, OTHER ==
[~2021-02-27] VITALS: Ht 175.3 cm; Wt 74.8 kg
[~2021-02-27 05:52] MED LIST changes: +AMLO-211 PO; -AMLO10TA8 PO; -LISI40TA PO; +LISI40TA9 PO
[2021-02-27] MEDS ORDERED: ONDANSETRON ODT 4 MG ONE (06:23)
[2021-02-27] MEDS ORDERED: HYDROcodone/APAP 5/325 TABLET ONE (06:23)
[2021-02-27] MEDS ORDERED: HYDROcodone/APAP 5/325 TABLET PO ONE (06:30)
[2021-02-27] MEDS ORDERED: ONDANSETRON ODT 4 MG PO ONE (06:30)
[2021-02-27 06:43] LABS: BASOPHILS % (AUTO) 1 % (0-1); EOSINOPHILS % (AUTO) 2 % (1-7); LYMPHOCYTES % (AUTO) 21 % (22-44); MEAN CORPUSCULAR HEMOGLOBIN 32.1 pg (27.5-34.5); MEAN CORPUSCULAR HGB CONC 33.9 g/dL (33.2-36.2); MEAN PLATELET VOLUME 7.7 fL (7.4-10.4); MONOCYTES % (AUTO) 9 % (2-9); NEUTROPHILS % (AUTO) 67 % (42-75); PLATELET COUNT 165 x10^3/uL (130-400); RED BLOOD COUNT 3.81 x10^6/uL (4.38-5.82); RED CELL DISTRIBUTION WIDTH 13.8 % (9.4-14.8)
[2021-02-27 06:44] LABS: MD NO
--- NOTE | 2021-02-27 06:55 | NUR ---
BS REPORT RECEIEVED FROM OPHELIA PIKE
[2021-02-27 06:57] LABS: ALBUMIN 3.6 g/dL (3.4-5.0); ANION GAP 7 mmol/L (5-15); CALCIUM 8.8 mg/dL (8.5-10.1); CHLORIDE 104 mmol/L (98-107)
[2021-02-27 07:27] VITALS: BP 128/92
--- NOTE | 2021-02-27 07:57 | NUR ---
PT STATES L HAND PAIN, IMAGING RESULTS NEGATIVE. PT A&O, RESPS EVEN AND UNLABORED, MONITORS ATTACHED, CALL LIGHT IN REACH. DISCHARGE ORDERS RECEIVED, EMT AT BEDSIDE FOR SPLINT.
--- NOTE | 2021-02-27 08:42 | NUR ---
PRECEPTOR RN NOTE: SPLINT PLACED TO LEFT WRIST BY EDTA PER EDPA ORDER. CMS INTACT. PT REQUESTING REPEAT PAIN MEDICATION, EDPA GATO NOTIFIED. EDPA DECLINES TO ORDER ADDITIONAL PAIN MEDICATION ED. PT GIVEN DC INSTRUCTIONS AND SCRIPT, EDUCATED REGARDING RX FOR NORCO AND ZOFRAN. PT EDUCATED REGARDING SPLINT CARE AND ORTHO F/U. PT TOLERATING PO'S WITH NO N/V. PT EDUCATED NOT TO DRIVE TODAY, STATES HE WILL BE TAKING A TAXI HOME. PT A&O, RESPS EVEN AND UNLABORED ,AMBULATORY TO DC DESK WITH STEADY GAIT. ALL QUESTIONS ANSWERED.
--- NOTE | 2021-02-27 08:45 | NUR ---
PT REFUSING DC VITAL SIGNS.
== END 2021-02-27 08:43 | disposition home or self-care (01) ==
LOC: ED 06:43
DX: M79.642 Pain in left hand (principal); E83.41 Hypermagnesemia; R11.0 Nausea; E11.22 Type 2 diabetes mellitus with diabetic chronic kidney disease; I12.0 Hypertensive chronic kidney disease with stage 5 chronic kidney disease or end stage renal disease; N18.6 End stage renal disease; Z99.2 Dependence on renal dialysis
CPT/HCPCS: 29125; 36415; 73130; 80048; 82040; 83735; 84100; 85025; 93005; 99285; Q0162

== ENCOUNTER 2021-04-04 03:30 | Emergency (ER) | payer MEDICAID ==
[~2021-04-04] VITALS: Ht 175.3 cm; Wt 76.3 kg
--- NOTE | 2021-04-04 04:34 | NUR ---
PT PRESENTS WITH SOMETHING IN HIS EAR, PT ON GURSTERLING, HOOKED TO THE MONITOR
--- NOTE | 2021-04-04 05:04 | NUR ---
ERP AT BEDSIDE, PT RESTING ON [place]
[2021-04-04] MEDS ORDERED: CARBAMIDE PEROXIDE EAR DROPS 6.5%, 15ML ONE (05:09)
[2021-04-04 05:13] VITALS: BP 142/75
[2021-04-04] MEDS ORDERED: CARBAMIDE PEROXIDE EAR DROPS 6.5%, 15ML RIGHT EAR ONE (05:30)
--- NOTE | 2021-04-04 05:56 | NUR ---
PRECEPTOR RN: PT RIGHT EAR IRRIGATED UNDER PRESSURE. PT TOLERATED WELL. PT REPORTS IMPROVED SYMPTOMS FOLLOWING IRRIGATION. "I CAN ACTUALLY KIND OF HEAR NOW, I FEEL BETTER." ERP AWARE AND AT BEDSIDE FOR RE-EVAL.
--- NOTE | 2021-04-04 06:10 | NUR ---
PRECEPTOR RN: Patient given discharge instructions and they have confirmed that they understand the instructions. Patient ambulatory with steady gait.
== END 2021-04-04 06:11 | disposition home or self-care (01) ==
LOC: ED 04:00
DX: H61.21 Impacted cerumen, right ear (principal); I12.0 Hypertensive chronic kidney disease with stage 5 chronic kidney disease or end stage renal disease; N18.6 End stage renal disease; E11.22 Type 2 diabetes mellitus with diabetic chronic kidney disease; Z99.2 Dependence on renal dialysis; F17.200 Nicotine dependence, unspecified, uncomplicated
CPT/HCPCS: 99282